=== PATIENT | female | born 1955 | race African-American/Black ===

== ENCOUNTER 2020-03-08 06:09 | Day surgery (SDC) | payer OTHER ==
[2020-03-05 13:11] VITALS: BMI 32.6
--- NOTE | 2020-03-07 20:04 | HP ---
Satellite [facility] - Chief Complaint Chief Complaint: left hand mass - Past Medical History Allergies/Adverse Reactions: Allergies Allergy/AdvReac Type Severity Reaction Status Date / Time No Known Allergies Allergy Verified 03/05/20 13:03 ...LMP: 04/10/12 - Current Medications Current Medications: Home Medications Medication Instructions Recorded Aspirin [Aspirin EC] 81 mg PO DAILY 07/30/11 Nebivolol HCl [Bystolic] 20 mg PO DAILY 07/30/11 Amlodipine Bes/Olmesartan Med 10 - 40 mg PO DAILY 04/09/12 [Alberto 10-20 mg Tablet] Exenatide Microspheres [Bydureon 2 mg SQ WEEKLY 03/05/20 Pen] Glimepiride 2 mg PO DAILY 03/05/20 Insulin Glargine,Hum.rec.anlog unit SQ HS 03/05/20 [Yassine Laguna U-100] Satellite Physical Exam - Physical Examination General Appearance: Well Nourished, Well Developed, Alert & Oriented x3 ENT: Clear Lung: Normal air movement Extremities: Other (left hand- + mass, nvi) Neurological: Intact, Alert, Oriented Satellite Impression/Plan - Impression/Plan Impression: left hand mass Operative Procedure: left hand mass excision Date to be Performed: 03/07/20
[2020-03-08] MEDS ORDERED: PROPOFOL 20 ML ONE ×2 (07:05)
[2020-03-08] MEDS ORDERED: ceFAZolin SODIUM 1 GM VIAL ONE (07:05)
[2020-03-08] MEDS ORDERED: MIDAZOLAM HCL 2 MG/2 ML SINGLE DOSE VIAL ONE (07:05)
[2020-03-08] MEDS ORDERED: SODIUM CHLORIDE 0.9% P/F 10 ML VIAL IJ ONE (07:06)
[2020-03-08] MEDS ORDERED: oxyCODONE HCL 5 MG TABLET PO PRN ×2 (07:18)
[2020-03-08] MEDS ORDERED: ONDANSETRON 4 MG/2 ML VIAL IVPUSH PRN (07:18)
[2020-03-08] MEDS ORDERED: LACTATED RINGERS SOLUTION 1,000 ML IV SCH (07:30)
[2020-03-08] MEDS ORDERED: LIDOCAINE HCL 1%, 10 MG/ML (20ML VIAL) INF ONE (07:48)
[2020-03-08] MEDS ORDERED: BUPIVACAINE HCL/PF 0.5% (5 MG/ML) 30 ML VIAL IJ ONE (07:48)
[2020-03-08] MEDS ORDERED: LIDOCAINE HCL 1%, 10 MG/ML (20ML VIAL) ONE (08:14)
[2020-03-08] MEDS ORDERED: BUPIVACAINE HCL/PF 0.5% (5MG/ML) 10 ML VIAL ONE (08:14)
--- NOTE | 2020-03-08 08:16 | OP ---
Operative Note - Note: Operative Date: 03/08/20 Pre-Operative Diagnosis: left hand mass Operation: left hand mass excision Post-Operative Diagnosis: Same as Pre-op Surgeon: Anshul Perez Anesthesiologist/CORPORATE FINANCIAL ANALYST: Shawn Burgess Anesthesia: Local, MAC Specimens Removed: left hand mass Estimated Blood Loss (mls): 0 Drains, Volume Out (mls): 0 Blood Volume Replaced (mls): 0 Fluid Volume Replaced (mls): 500 Operative Report Dictated: Yes
[2020-03-08 09:07] VITALS: TEMP 97.6
[2020-03-08 09:08] VITALS: BP 113/61; PULSE 62
--- NOTE | 2020-03-08 09:48 | OP ---
DATE OF OPERATION: 03/08/2020 LOCATION: [facility] PREOPERATIVE DIAGNOSIS: Left hand mass. POSTOPERATIVE DIAGNOSIS: Left hand mass. PROCEDURE: Left hand mass excision. SURGEON: Anshul Perez MD NAUTICAL INSTRUMENT MECHANIC: None. ANESTHESIOLOGIST: Enedina Burgess MD ANESTHESIA: MAC anesthesia, local injection of 8 mL 0.5% Marcaine and 1% lidocaine mix. DRAINS: None. COMPLICATIONS: None. SPECIMEN: Left hand mass. FLUID REPLACEMENT: PlasmaLyte 700 mL. INDICATION: This patient is a 64-year-old right hand dominant female who presents with a recurrent left hand mass. There is an oblong dark mass in the left thenar eminence. We discussed potential risks, complications, alternatives, and benefits of surgical versus nonsurgical treatment. Patient understands that she might require additional treatment if the pathology report is something more worrisome. DESCRIPTION OF PROCEDURE: The patient was brought to the operating room, peripheral IV placed and IV sedation given. Two g of IV Ancef were given. MAC anesthesia was induced. The left upper extremity was prepped and draped in a sterile fashion, elevated, and exsanguinated with an Esmarch bandage. Tourniquet inflated to 250 mmHg. A football-shaped incision was marked out with a marking pen, and the area injected with 8 mL 0.5% Marcaine and 1% lidocaine mix. Then using a fresh number 15 scalpel blade to cut along the lines of this incision. The subcutaneous hemostasis was achieved with a bipolar cautery. Additional dissection underneath this mass was done with a fresh number 15 scalpel blade, and the entire mass with the overlying skin was passed off the field. The area was copiously irrigated and washed out. The remaining soft tissue all looked and felt completely normal. The thenar musculature was exposed and looked completely normal and unaffected by the mass. What was left of the surrounding skin and the deep dermal layer looked completely normal. Next, I used small Littler scissors to raise subcuticular flaps both in the ulnar and radial direction. The skin was quite mobile over the thenar eminence. I was able to bring it together side to side, and the patient did not need a skin graft. First, I closed the deep dermal layer with 4-0 undyed Vicryl and then skin was held together with single interrupted 4-0 nylon sutures. As mentioned, this came together quite nicely. The area was washed, dried, covered with Xeroform gauze, 4 x 4 gauze, Webril, and Coban. The tourniquet was taken down after a total tourniquet time of 16 minutes. There were no complications during the case. The patient tolerated the procedure quite well and was brought to the ambulatory recovery room in stable condition. Shanti [id number]
--- NOTE | 2020-03-14 16:23 | PATH ---
Surgical Pathology Report Patient Name: JOSE ALFREDO MONTELONGO Med. Rec. #: [id number] /Age/Gender: 1955 (Age: 64) / F Account: [id number] Location: [facility] AMBULATORY Taken: 03/08/2020 Received: 03/08/2020 Reported: 03/14/2020 Physicians: Anshul Perez M.D. Specimen(s) Received LEFT HAND MASS Clinical History Left hand mass Final Diagnosis LEFT HAND MASS, EXCISION: PORTION OF SKIN WITH DILATED VESSEL SHOWING INTRAVASCULAR ORGANIZING THROMBUS WITH GRANULATION TISSUE FORMATION. THE OVERLYING EPIDERMIS WITH HYPERKERATOSIS. Comment: Favor a reactive process. Immunohistochemistry stain performed and interpreted at [place], [place] ([id number]) for HHV8 is Negative. Electronically Signed Gabe Winters M.D. Gross Description Received in formalin labeled "left hand mass," is a 2.0 x 0.9 cm aquino-brown, elliptical, unoriented portion of skin excised to a depth of 0.4 cm. Sectioning reveals a 0.4 x 0.4 x 0.3 cm possible cyst. Trailer Truck [employer] sections are submitted in one cassette. DL/03/09/2020 saudi/03/09/2020
== END 2020-03-08 09:15 | disposition home or self-care (01) ==
LOC: FASU 06:09
PROVIDERS: ATTEND Orthopaedic Surgery
PROC: 0JBK0ZZ Excision of Left Hand Subcutaneous Tissue and Fascia, Open Approach (ICD-10-PCS; principal; 2020-03-08 07:49)
DX: D21.12 Benign neoplasm of connective and other soft tissue of left upper limb, including shoulder (principal)
CPT/HCPCS: 82962; 88305-TC

== ENCOUNTER 2020-10-31 12:13 | Emergency (ER) | payer OTHER ==
[2020-10-31 12:44] VITALS: BP 154/84; PULSE 62; TEMP 98.9; BMI 32.6
[2020-10-31] MEDS ORDERED: MAG HYDROX/AL HYDROX/SIMETH -MYLANTA- ORAL SUSPENSION PO ONE (12:45)
[2020-10-31] MEDS ORDERED: FAMOTIDINE 20 MG/50 ML IVPB 20 MG/50 ML MG IVPB ONE ×2 (12:45→13:19)
[2020-10-31 13:06] LABS: BASO % 3.1 % (0-2.0); EOS % 0.9 % (0-4.5); HEMATOCRIT 39.7 % (32.4-45.2); HEMOGLOBIN 13.1 GM/dl (10.7-15.3); LYMPH % 32.7 % (8-40); MCH 28.4 pg (25.7-33.7); MCHC 32.9 g/dl (32.0-36.0); MEAN CELL VOLUME 86.3 fl (80-96); MEAN PLT VOLUME 7.7 fl (7.5-11.1); NEUT % 53.3 % (42.8-82.8); PLATELET COUNT 264 K/MM3 (134-434); RDW 12.6 % (11.6-15.6); WHITE BLOOD COUNT 4.5 K/mm3 (4.0-10.8)
[2020-10-31 13:16] LABS: INR 1.09 (0.82-1.09); PROTHROMBIN TIME (PATIENT) 12.1 SEC (10.2-13.0)
[2020-10-31] MEDS ORDERED: MAG HYDROX/AL HYDROX/SIMETH 30 ML UNIT-DOSE CUP ONE (13:19)
[2020-10-31 13:24] LABS: ALBUMIN 3.9 g/dl (3.4-5.0); BILIRUBIN,TOTAL 0.7 mg/dl (0.2-1); CALCIUM 8.8 mg/dl (8.5-10); CREATININE 1.2 mg/dl (0.55-1.3); TOT PROT 7.1 g/dl (6.4-8.2)
== END 2020-10-31 14:36 | disposition home or self-care (01) ==
LOC: FER 12:13
PROC: 3E033GC Introduction of Other Therapeutic Substance into Peripheral Vein, Percutaneous Approach (ICD-10-PCS; principal; 2020-10-31)
DX: K21.9 Gastro-esophageal reflux disease without esophagitis (principal)
CPT/HCPCS: 36415; 71045-TC-FY; 80053; 82550; 82553; 84484; 85025; 85610; 93005; 99285-25

== ENCOUNTER 2021-09-10 13:56 | Emergency (ER) | payer OTHER ==
[2021-09-10 14:22] VITALS: TEMP 98.1; BMI 31.4
[2021-09-10] MEDS ORDERED: ACETAMINOPHEN 1000 MG/100 ML BAG IVPB ONE (14:47)
[2021-09-10] MEDS ORDERED: MAG HYDROX/AL HYDROX/SIMETH 30 ML UNIT-DOSE CUP PO ONE (14:47)
[2021-09-10 15:15] LABS: BASO % 0.4 % (0-2.0); EOS % 0.2 % (0-4.5); HEMOGLOBIN 12.8 GM/dL (10.7-15.3); LYMPH % 23.9 % (8-40); MCH 28.3 pg (25.7-33.7); MCHC 33.6 g/dl (32.0-36.0); MEAN CELL VOLUME 84.3 fl (80-96); MONO % 6.4 % (3.8-10.2); NEUT % 69.1 % (42.8-82.8); PLATELET COUNT 234 10^3/uL (134-434); RBC 4.51 M/mm3 (3.60-5.2); RDW 13.4 % (11.6-15.6); WHITE BLOOD COUNT 5.3 K/mm3 (4.0-10.0)
[2021-09-10] MEDS ORDERED: ACETAMINOPHEN INJECTION 100 ML IVPB ONE (15:16)
[2021-09-10] MEDS ORDERED: MAG HYDROX/AL HYDROX/SIMETH 30 ML UNIT-DOSE CUP ONE (15:16)
[2021-09-10 15:32] LABS: URINE APPEARANCE CLEAR; URINE BILIRUBIN NEGATIVE (NEGATIVE); URINE COLOR YELLOW; URINE GLUCOSE (UA) NEGATIVE (NEGATIVE); URINE KETONE NEGATIVE (NEGATIVE); URINE LEUK ESTERASE NEGATIVE (NEGATIVE); URINE NITRITE NEGATIVE (NEGATIVE); URINE PROTEIN NEGATIVE (NEGATIVE); URINE UROBILINOGEN 0.2 mg/dL (0.2-1.0)
[2021-09-10 16:19] LABS: ALBUMIN 4.1 g/dl (3.4-5.0); CALCIUM 9.4 mg/dL (8.5-10.1); MAGNESIUM 2.4 mg/dL (1.8-2.4)
[2021-09-10 16:22] LABS: CREATININE 1.3 mg/dL (0.55-1.3)
[2021-09-10 16:24] LABS: BILIRUBIN,TOTAL 0.5 mg/dL (0.2-1); TOT PROT 7.7 g/dl (6.4-8.2)
[2021-09-10 17:25] VITALS: BP 166/92; PULSE 76
[2021-09-10] MEDS ORDERED: FAMOTIDINE 20 MG/50 ML IVPB 20 MG/50 ML MG IVPB SCH (22:00)
== END 2021-09-10 17:27 | disposition left against medical advice (07) ==
LOC: JER 13:56
PROC: 3E0333Z Introduction of Anti-inflammatory into Peripheral Vein, Percutaneous Approach (ICD-10-PCS; principal; 2021-09-10)
DX: R07.9 Chest pain, unspecified (principal)
CPT/HCPCS: 36415; 71046-TC-FY; 80053; 81003; 82550; 82553; 83735; 84484; 85025; 87086; 93005; 93010; 99285-25; C9803; U0003; U0005

== ENCOUNTER → 2021-11-20 | Day surgery (SDC) | payer OTHER | END | disposition home or self-care (01) | LOC: JRADIR 09:40 | PROVIDERS: ATTEND Internal Medicine Endocrinology, Diabetes & Metabolism | PROC: 0G9K3ZX Drainage of Thyroid Gland, Percutaneous Approach, Diagnostic (ICD-10-PCS; principal; 2021-11-20) | DX: E04.1 Nontoxic single thyroid nodule (principal) | CPT/HCPCS: 10005; 76942; 88173; 88305-TC ==

== ENCOUNTER 2022-10-30 04:32 | Day surgery (SDC) | payer OTHER ==
[2022-10-27 16:27] VITALS: BMI 30.4
[2022-10-30 08:19] VITALS: TEMP 97.5
[2022-10-30 08:49] VITALS: BP 117/55; PULSE 54; RESP 20
== END 2022-10-30 09:04 | disposition home or self-care (01) ==
LOC: JASU-ENDO 04:32
PROVIDERS: ATTEND Internal Medicine Gastroenterology
PROC: 0DJD8ZZ Inspection of Lower Intestinal Tract, Via Natural or Artificial Opening Endoscopic (ICD-10-PCS; principal; 2022-10-30 08:00)
DX: Z12.11 Encounter for screening for malignant neoplasm of colon (principal); K57.30 Diverticulosis of large intestine without perforation or abscess without bleeding; K64.8 Other hemorrhoids
CPT/HCPCS: 82962